=== PATIENT | male | born 1955 | race Caucasian/White ===

== ENCOUNTER 2018-12-21 16:02 | Emergency (ER) | payer OTHER ==
[2018-12-21 16:10] VITALS: BP 152/80; TEMP 97.6; BMI 30.8
[2018-12-21] MEDS ORDERED: LIDOCAINE HCL 1% SDV SUBCUT STA (16:26)
[2018-12-21] MEDS ORDERED: BOOSTRIX IM ONE (16:26)
--- NOTE | 2018-12-21 16:26 | ED.PDOC ---
General ED Provider: Dr. KRISTINA NAIR Chief Complaint: Hand Laceration Stated Complaint: "Cut my Rt Hand". 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 and and sustained laceration between thumb and 1st finger on a piece of metal farm equipment, bleeding controlled Time Seen by Physician: 16:20 Mode of Arrival: Walk-In Information Source: Patient Exam Limitations: No limitations Primary Care Provider: AYANA TURNER Nursing and Triage Documentation Reviewed and Agree: Yes Does patient meet sepsis criteria?: No If yes, has appropriate treatment been initiated?: Yes System Inflammatory Response Syndrome: Not Applicable Sepsis Protocol: For patient's 13 years and over: Temp is 96.8 and below OR 101 and greater Pulse >90 BPM Resp >20/minute Acutely Altered Mental Status Are patient's symptoms suggestive of a new infection, such as: -Pneumonia -Skin, Soft Tissue -Endocarditis -UTI -Bone, Joint Infection -Implantable Device -Acute Abdominal Infection -Wound Infection -Meningitis -Blood Stream Catheter Infection -Unknown Trauma/Injury Complaint Exam - Trauma Complaint/Exam Location of Pain or Injury: Reports: RUE (Hand palmar interspace between 1st and 2nd digit) Mechanism of Injury: Reports: Penetrating trauma Onset/Duration: 2 hrs Symptoms Are: Still present Timing of Treatment: Immediate Initial Severity: Moderate Current Severity: Mild Character: Reports: Aching, Burning, Sharp Aggravating: Reports: Movement Alleviating: Reports: None, Rest, Immobilization, Elevation, Ice Associated Signs and Symptoms: Reports: Bleeding. Denies: LOC, Confusion, Memory loss, Lethargy, Vomiting, Bruising, Swelling, Extremity disuse, Painful respiration, Hoarseness, Dysphagia, Hemoptysis, Significant blood loss Related History: Denies: Similar episode Penetrating Injury Risk Factors: Reports: Grinding (puncture) Related Surgical History: Reports: None Skin Findings: Present: Laceration (Rt Hand) Differential Diagnoses: Laceration Review of Systems - Review Of Systems Constitutional: Reports: No symptoms Eyes: Reports: No symptoms Ears, Nose, Mouth, Throat: Reports: No symptoms Respiratory: Reports: No symptoms Cardiac: Reports: No symptoms GI: Reports: No symptoms : Reports: No symptoms Musculoskeletal: Reports: No symptoms Skin: Reports: No symptoms Neurological: Reports: No symptoms Endocrine: Reports: No symptoms Hematologic/Lymphatic: Reports: No symptoms All Other Systems: Reviewed and Negative Past Medical History - Past Medical History Previously Healthy: Yes Endocrine: Reports: None Cardiovascular: Reports: None Respiratory: Reports: None Hematological: Reports: None Gastrointestinal: Reports: None Genitourinary: Reports: None Neuro/Psych: Reports: None Musculoskeletal: Reports: None Cancer: Reports: None - Surgical History General Surgical History: Reports: None - Family History Family History: Reports: None - Social History Smoking Status: Never smoker Hx Substance Use: No Alcohol Screening: Heavy - Immunizations Tetanus Shot up to Date: No Physical Exam - Physical Exam Appearance: Well-appearing, Well-nourished Pain Distress: Mild Eyes: WILIAN, EOMI, Conjunctiva clear ENT: Ears normal, Nose normal, Oropharynx normal Respiratory: Airway patent, Breath sounds clear, Breath sounds equal, Respirations nonlabored Cardiovascular: RRR, Pulses normal, No rub, No murmur GI/: Soft, Nontender, No masses, Bowel sounds normal, No Organomegaly Musculoskeletal: Normal strength, ROM intact, No edema, No calf tenderness Skin: Warm, Dry, Normal color Neurological: Sensation intact, Motor intact, Reflexes intact, Cranial nerves intact, Alert, Oriented Psychiatric: Affect appropriate, Mood appropriate Interpretation - Radiology Interpretation Radiology Interpretation By: ED Physician Exam Interpreted: Other (Rt Hand; No acute Osseous abnormalities. no obvious metalic foreign objects) Procedures - Laceration/Wound Repair Rt Hand Wound Length (cm): 2.5-3 CM Wound Width: 5 mm Wound Depth: 5 mm Wound Explored: Clean Wound Irrigated: Yes Wound Prep: Saline, Hibiclens, Betadine Anesthesia: Lidocaine (5 cc 1 % Lidocaine plain) Wound Repaired With: Sutures Suture Size and Type: 3-0 Ethilon Number of Sutures: 5 Layer Closure?: No Sterile Dressing Applied?: Yes Splint Applied?: No Sling Applied?: No Re-Evaluation - Re-Evaluation Time of Re-Evaluation: 18:40 Status: Improved Vital Signs Stable: Yes Appearance: NAD Lungs: Clear Skin: Warm and Dry Neuro: Alert and Oriented X3 Critical Care Note - Critical Care Note Total Time (mins): 30 Course - Course Orders, Labs, Meds: Orders Category Date Time Status Diphth,Pertuss(Acell),Tet Vac [Boostrix] MEDS 12/21/18 16:26 Discontinued 0.5 ml IM .ONCE ONE Lidocaine HCl/Pf [Lidocaine HCl 1% Sdv] MEDS 12/21/18 16:26 Discontinued 5 ml SUBCUT ONCE STA HAND, RIGHT 2 VIEWS Stat RADS 12/21/18 17:05 Completed Medications Discontinued Medications Generic Name Dose Route Start Last Admin Trade Name Zenia PRN Reason Stop Dose Admin Diphtheria/Pertussis/Tetanus Vacc 0.5 ml 12/21/18 16:26 12/21/18 16:33 Boostrix IM 12/21/18 16:27 0.5 ml .ONCE ONE Administration Lidocaine HCl 5 ml 12/21/18 16:26 12/21/18 16:32 Lidocaine Hcl 1% Sdv SUBCUT 12/21/18 16:27 5 ml ONCE STA Administration Vital Signs: Temp Pulse Resp BP Pulse Ox 12/21/18 16:02 97.6 F 77 18 152/80 H 96 Departure - Departure Time of Disposition: 17:25 Disposition: HOME SELF-CARE Discharge Problem: Laceration of right hand Instructions: Care For Your Stitches (ED), Laceration (ED) Condition: Good Pt referred to PMD for follow-up: Yes (See PCP 1wk or return here) IPMP verified?: No Additional Instructions: Wound care as directed Take antibiotics Take Ibuprofen or Tylenol for Pain Return to ER for follow up in 1 week Prescriptions: Cephalexin 500 mg PO BID 7 Days #14 capsule Allergies/Adverse Reactions: Allergies No Known Allergies Allergy (Verified 12/21/18 16:06) Home Medications: Ambulatory Orders Amlodipine Besylate [Norvasc] 5 mg PO DAILY 12/21/18 Benazepril HCl [Lotensin] 20 mg PO DAILY 12/21/18 Cephalexin 500 mg PO BID 7 Days #14 capsule 12/21/18 Topiramate [Topamax] 50 mg PO DAILY 12/21/18 Disposition Discussed With: Patient
--- NOTE | 2018-12-21 17:51 | DI ---
Exam: Two views of the right hand. Comparison: Right thumb x-ray performed 09/10/2010. Reason for exam: Laceration. FINDINGS: No acute fracture or malalignment. The cortices appear intact. There is moderate degener ative disease with joint space narrowing and osteophyte formation. No radiopaque retained foreign dave dy is seen. Impression: No acute fracture or dislocation in the right hand. Moderate degenerative disease.
== END 2018-12-21 17:41 | disposition home or self-care (01) ==
LOC: ED 16:02
DX: S61.411A Laceration without foreign body of right hand, initial encounter (principal); W45.8XXA Other foreign body or object entering through skin, initial encounter
CPT/HCPCS: 90471; 90715; 99283

== ENCOUNTER 2024-09-26 11:32 | Observation (INO) ==
[2024-09-26] MEDS ORDERED: SOLU-MEDROL 40 MG IVP STA (11:54)
[2024-09-26] MEDS: DUONEB NEB ONE ×2 (12:02→12:53)
--- NOTE | 2024-09-26 12:04 | ED.PDOC ---
General ED Provider: Dr. TALA THOMAS MD Chief Complaint: Shortness of Air Stated Complaint: Dyspnea Time Seen by Provider: 09/26/24 12:03 Information Source: Patient and Family Primary Care Provider: AYANA TURNER Nursing and Triage Documentation Reviewed and Agree: Yes Does Patient Take Opioids?: No Is Patient Opioid Naive?: Yes What is Opioid Naive?: *Opioid Naive implies the patient is not already taking opioids or not chronically receiving opioids on a daily basis. *PRN dosing is not "usually" associated with tolerance. *Patients are at higher risk of over-sedation and aspiration. Is Patient Opioid Tolerant?: No What is Opioid Tolerant?: *Opioid Tolerance implies less than the expected response to an opioid. *Acquired tolerance is defined by the patient taking 60mg of oral morphine daily (or equianalgesic dose of another opioid) for 1 week or more. *Often associated with chronic pain. *May take more than usual dose to achieve desired pain control. Respiratory Complaint Exam Shortness of Air Complaint/Exam Onset/Duration: 3 days Symptoms Are: Worse Timing: Constant Initial Severity: Moderate Current Severity: Severe Character: Reports Dyspnea at rest and Orthopnea Aggravating: Reports URI Alleviating: Reports Bronchodilators and Upright position Associated Signs and Symptoms: Reports Cough, Wheezing, Fever, Nasal congestion and Labored breathing; Denies Chills or Diaphoresis History of Healthcare-Acquired Pneumonia: No Home Oxygen Use: No Respiratory Distress: Moderate Stridor Present: No Tracheal Deviation: No Subcutaneous Emphysema: No Accessory Muscle Use: No Retractions: Not Present Diminished Breath Sounds: Yes Prolonged Expiratory Phase: Yes Unable to Speak Full Sentences: Yes Fatigue: No Leg Swelling: No Tami's Sign Present: No Grunting Respirations: No Differential Diagnoses: Asthma, Pulmonary Edema, COPD Exacerbation, Pneumonia, SARS, Bronchitis, RSV, Bronchospasm and URI Review of Systems Review Of Systems Constitutional: Reports Chills, Fever, Malaise and Weakness Eyes: Reports No symptoms Ears, Nose, Mouth, Throat: Reports No symptoms Cardiac: Reports No symptoms GI: Reports No symptoms : Reports No symptoms Musculoskeletal: Reports No symptoms Skin: Reports No symptoms Neurological: Reports No symptoms Endocrine: Reports No symptoms Hematologic/Lymphatic: Reports No symptoms [facility] Medical History History of high cholesterol Z86.39 - Personal history of other endocrine, nutritional and metabolic disease (ICD-10) Hypertension I10 - Essential (primary) hypertension (ICD-10) Chronic headaches R51 - Headache (ICD-10) 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 (ICD-10) Family History (Updated 09/26/24 @ 14:25 by CRISTOBAL PAZ RN) Mother Stroke FATHER Heart attack Social History (Updated 09/26/24 @ 14:25 by CRISTOBAL PAZ RN) Smoking and tobacco status: Former smoker How long ago did patient quit smokin years ago Quit status: quit date established Alcohol intake: current Substance use type: does not use Surgical History 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 (ICD-10) hip surgeries x2 Physical Exam Physical Exam Appearance: Reports Ill-appearing, No pain distress and Well-nourished Ill-appearing: Moderate Pain Distress: None Eyes: Reports WILIAN, EOMI and Conjunctiva clear ENT: Reports Nose normal and Oropharynx normal Neck: Supple Respiratory: Reports Breath sounds diminished, Crackles and Wheezes Cardiovascular: Reports RRR, Pulses normal and No murmur GI/: Reports Soft, Nontender and No Organomegaly Musculoskeletal: Reports Normal strength, ROM intact, No edema and No calf tenderness Skin: Reports Warm and Dry; Denies Cyanotic Neurological: Reports Alert and Oriented Interpretation Radiology Interpretation Radiology Interpretation By: ED Physician (By my independent interpretation) Radiology Results: Positive (Flattening of the diaphragm without infiltrate) Exam Interpreted: CXR (2 view) Physician Notification Case Discussed Physician Notified: Jaime Conley Time of Notification: 13:00 Comments: Observation for influenza A with exacerbation of COPD unresponsive to aggressive management Course Course 09/26/24 12:03 09/26/24 12:03 Orders, Labs, Meds: Lab Review 09/26/24 09/26/24 12:00 12:03 WBC 5.37 RBC 4.75 Hgb 14.1 Hct 44.3 MCV 93.3 MCH 29.7 MCHC 31.8 RDW Coeff of Morteza 12.6 Plt Count 197 Immature Gran % (Auto) 0.7 Neut % (Auto) 48.5 Lymph % (Auto) 33.5 Robeson % (Auto) 15.8 H Eos % (Auto) 1.1 Baso % (Auto) 0.4 Neut # (Auto) 2.6 Lymph # (Auto) 1.8 Robeson # (Auto) 0.9 Eos # (Auto) 0.1 Baso # (Auto) 0.0 Immature Gran # (Auto) 0.0 Sodium 140.3 Potassium 4.51 Chloride 104.5 Carbon Dioxide 25.0 Anion Gap 15.31 BUN 15.9 Creatinine 1.10 Estimated GFR (MDRD) 66.00 BUN/Creatinine Ratio 14.45 Glucose 125.7 H Calcium 9.31 NT-Pro-B Natriuret Pep 352 H Influ A Molecular Assay Positive by naat H Influ B Molecular Assay Negative by naat RSV Antigen Negative by naat SARS CoV-2 RNA Rapid EDMUNDO Negative Orders Category Date Time Status OBSERVATION [PLACE PATIENT OBSERVATION] .[facility] ADMISSION 09/26/24 13:14 Active (MONITORED BED) TELEMETRY MONITORING TELE CARE 09/26/24 13:14 Active BMP [BASIC METABOLIC PANEL] Stat LAB 09/26/24 12:03 Completed CBC W/ AUTO DIFF Stat LAB 09/26/24 12:03 Completed COVID [SARS COV-2 RNA RAPID EDMUNDO] Stat LAB 09/26/24 12:00 Completed FLU A & B MOLECULAR [FLU A/B MOLECULAR] Stat LAB 09/26/24 12:00 Completed NT-PROBNP(ED) Stat LAB 09/26/24 12:03 Completed RSV Stat LAB 09/26/24 12:00 Completed Ipratropium/Albuterol Neb [Duoneb] Meds 09/26/24 11:54 Discontinued 3 ml NEB ONCE ONE Ipratropium/Albuterol Neb [Duoneb] Meds 09/26/24 12:44 Discontinued 3 ml NEB ONCE ONE Methylprednisolone Sod Succ/Pf [Solu-Medrol 125 mg] Meds 09/26/24 12:30 Discontinued 125 mg IVP ONCE ONE CXR [CHEST, 2 VIEWS PA & LAT] Stat RADS 09/26/24 11:54 Completed Medications Discontinued Medications Generic Name Dose Route Start Last Admin Trade Name Freq PRN Reason Stop Dose Admin Albuterol/Ipratropium 3 ml 09/26/24 11:54 09/26/24 12:02 Ipratropium/Albuterol Vial.Neb NEB 09/26/24 11:55 3 ml ONCE ONE Administration Albuterol/Ipratropium 3 ml 09/26/24 12:44 09/26/24 12:53 Ipratropium/Albuterol Vial.Neb NEB 09/26/24 12:45 3 ml ONCE ONE Administration Methylprednisolone Sodium Succinate 125 mg 09/26/24 12:30 09/26/24 12:22 Methylprednisolone Sod Succ/Pf 125 Mg/2 Ml Vial IVP 09/26/24 12:31 125 mg ONCE ONE Administration Vital Signs: Temp Pulse Resp BP Pulse Ox 09/26/24 11:43 97.5 F L 89 20 137/91 H 96 EXAM: CHEST RADIOGRAPH; TWO VIEW HISTORY: SOB COMPARISON: Chest radiograph for 05/13/2023. FINDINGS: Trachea is midline. Cardiomediastinal silhouette is unchanged. Atherosclerosis in the aorta. Calcified granulomas. No pneumothorax or large pleural effusions. Osseous structures are intact. IMPRESSION: No acute findings. Electronically Signed By: Tera Sykes M.D. Signing Date: 2024-09-26 12:44 Discharge Plan Discharge Patient Disposition: PLACED OBSERVATION Discharge Problem: Influenza A Acute asthma exacerbation Qualifiers: Asthma severity: mild Asthma persistence: intermittent Qualified Code(s): J 45.21 - Mild intermittent asthma with (acute) exacerbation Did you review [place] [employer] for ALL controlled substances?: No ED Provider: TALA THOMAS Condition: Stable Physician Progress Note: Patient seen after triage Cough and congestion. Complaining of being dyspneic. 1225-flu a is positive. 1250-patient still has significant wheezing. A second nebulizer treatment was ordered. Explained the positivity of the test. He did not take his shot this year. 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 He does not have a nebulizer at home. Chest x-ray shows chronic abnormalities but no infiltrates 1315-patient is no better after the second nebulizer treatment. He is agreeable to observation status. Hospitalist notified. Patient placed in observation on monitor.
[2024-09-26 12:06] LABS: BASOPHILS % (AUTO) 0.4 % (0.0-3.0); EOSINOPHILS # (AUTO) 0.1 K/ul (0.0-0.7); EOSINOPHILS % (AUTO) 1.1 % (0.0-7.0); HEMATOCRIT 44.3 % (42.0-52.0); HEMOGLOBIN 14.1 g/dl (14.0-18.0); IMMATURE GRANULOCYTE % (AUTO) 0.7 % (0.0-5.0); LYMPHOCYTES # (AUTO) 1.8 K/uL (0.60-3.4); LYMPHOCYTES % (AUTO) 33.5 (10.0-50.0); MEAN CORPUSCULAR HEMOGLOBIN 29.7 pg (27.0-31.0); MEAN CORPUSCULAR HGB CONC 31.8 (31.8-35.4); MEAN CORPUSCULAR VOLUME 93.3 fl (80.0-94.0); MONOCYTES # (AUTO) 0.9 K/uL (0.4-2.0); MONOCYTES % (AUTO) 15.8 (0-10); NEUTROPHILS # (AUTO) 2.6 K/ul (2.0-6.9); NEUTROPHILS % (AUTO) 48.5 % (42.2-75.2); PLATELET COUNT 197 10^3/uL (140-440); RDW COEFFICIENT OF VARIATION 12.6 % (11.6-14.8); RED BLOOD COUNT 4.75 10^6/ul (4.70-6.10); WHITE BLOOD COUNT 5.37 K/ul (4.2-10.2)
[2024-09-26 12:22] LABS: MOLECULAR FLU A POSITIVE BY NAAT (NEGATIVE); MOLECULAR FLU B NEGATIVE BY NAAT (NEGATIVE); RSV MOLECULAR NEGATIVE BY NAAT (NEGATIVE); SARS COV-2 RNA RAPID NAAT NEGATIVE (NEGATIVE)
[2024-09-26] MEDS: SOLU-MEDROL 125 MG IVP ONE (12:22)
[2024-09-26 12:23] LABS: BLOOD UREA NITROGEN 15.9 mg/dL (9-20); CALCIUM 9.31 mg/dL (8.4-10.2); CHLORIDE 104.5 mmol/L (98-107); CREATININE 1.1 mg/dL (0.60-1.10); GLUCOSE 125.7 mg/dL (74-106); POTASSIUM 4.51 mmol/L (3.5-5.1); SODIUM 140.3 mmol/L (134.5-145)
--- NOTE | 2024-09-26 12:48 | DI ---
EXAM: CHEST RADIOGRAPH; TWO VIEW HISTORY: SOB COMPARISON: Chest radiograph for 05/13/2023. FINDINGS: Trachea is midline. Cardiomediastinal silhouette is unchanged. Atherosclerosis in the aorta. Calci fied granulomas. No pneumothorax or large pleural effusions. Osseous structures are intact. IMPRESSION: No acute findings.
[2024-09-26 14:38] VITALS: BMI 30.4
[2024-09-26] MEDS ORDERED: TYLENOL PO PRN (14:45)
[2024-09-26] MEDS ORDERED: ALBUTEROL 0.083% NEB NEB PRN (14:45)
--- NOTE | 2024-09-26 15:18 | PCM ---
Date of Service Date Seen by Provider: 09/26/24 Time Seen by Provider: 15:00 Admit Day/Time Admission Date: 09/26/24 Admission Time: 13:15 Reason for Admission Chief Complaint: ACUTE COPD (FLU +) Hospital Provider Hospital Provider: LEX DIXON, [facility] [place] Primary Care Physician Primary Care Physician: SAULO ISSA History of Present Illness History of Present Illness: 68 yo male with pmh of systolic HF, COPD, HTN, HLD, and GERD presented to the ER with complaints of shortness of breath. Patient states he has had shortness of breath on exertion over the past 2 months but worsened over the last week or so. Reports difficulty laying flat, productive cough with clear sputum, and dyspnea on exertion. Denies fever, chills, body aches, sore throat or other symptoms. Sees [facility] with his last visit on 09/21/24 and was prescribed a breztri inhaler. States this has not been helping him and didn't know what else to do once he began wheezing extensively. Chest x-ray clear. Labs unremarkable. However, flu A positive. Unsure of onset but patient reports cough started on Thursday of last week. He was given steroids and 2 duonebs in ER without relief at this time. Admitted to med/surg observation. Case Discussed With Case Discussed With: Patient's case was discussed with the ER Physicians, Dr. Tripathi. [facility] Medical History (Updated 09/26/24 @ 15:23 by LEX DIXON) Stage 2 moderate COPD by GOLD classification J44.9 - Chronic obstructive pulmonary disease, unspecified (ICD-10) Systolic heart failure I50.20 - Unspecified systolic (congestive) heart failure (ICD-10) History of high cholesterol Z86.39 - Personal history of other endocrine, nutritional and metabolic disease (ICD-10) Hypertension I10 - Essential (primary) hypertension (ICD-10) Chronic headaches R51 - Headache (ICD-10) 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 (ICD-10) Surgical History 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 (ICD-10) hip surgeries x2 Family History Mother Stroke FATHER Heart attack Social History Smoking and tobacco status: Former smoker How long ago did patient quit smokin years ago Quit status: quit date established Alcohol intake: current Substance use type: does not use Allergies Allergies Allergy/AdvReac Type Severity Reaction Status Date / Time No Known Allergies Allergy Verified 09/26/24 11:48 Current Medications Home Medications Acetaminophen (Acetaminophen 325 Mg Tablet) 650 mg PO Q4H PRN PRN Reason: Mild Pain Albuterol Sulfate (Albuterol Sulfate 0.083% Vial.Neb) 2.5 mg NEB RTQ4H PRN PRN Reason: Wheezing Albuterol/Ipratropium (Ipratropium/Albuterol Vial.Neb) 3 ml NEB RTQ4H BG Azithromycin (Azithromycin 250 Mg Tablet) 500 mg PO DAILY BG Stop: 09/29/24 14:49 Clopidogrel Bisulfate (Clopidogrel Bisulfate 75 Mg Tablet) 75 mg PO DAILY [facility] CEFTRIAXONE/D5W 1 GM PREMIX (Rocephin 1 Gm/50 Ml D5w) 1 gm in 50 mls @ 100 mls/hr IV DAILY BG Stop: 09/29/24 14:59 Lisinopril (Lisinopril 5 Mg Tablet) 5 mg PO DAILY [facility] Methylprednisolone Sodium Succinate (Methylprednisolone Sod Succ/Pf 40 Mg/Ml Vial) 40 mg IVP Q8HR BG Metoprolol Succinate (Metoprolol Succinate 50 Mg Tab.Er.24h) 50 mg PO DAILY [facility] Non-Formulary Medication (Ctibymdgsm-Qtdyksvn-Zsburvhaqo [Breztri Aerosphere]) 2 inh IH BID BG Pantoprazole Sodium (Pantoprazole Sodium 40 Mg Tablet.) 40 mg PO QDAC2 BG Rosuvastatin Calcium (Rosuvastatin Calcium 10 Mg Tablet) 40 mg PO DAILY BG Spironolactone (Spironolactone 25 Mg Tablet) 25 mg PO DAILY BG Topiramate (Topiramate 50 Mg Tablet) 50 mg PO DAILY [facility] topiramate 50 mg tablet 50 mg PO DAILY 12/21/18 [History Confirmed 09/26/24] clopidogrel 75 mg tablet (Plavix) 75 mg PO DAILY 06/21/20 [History Confirmed 09/26/24] pantoprazole 40 mg tablet,delayed release (Protonix) 40 mg PO DAILY 06/21/20 [History Confirmed 09/26/24] albuterol sulfate 90 mcg/actuation aerosol inhaler 2 puff inhalation Q4-6H PRN shortness of breath or wheezing #8.5 grams 09/26/24 [Rx] budesonide 160 mcg-glycopyr 9 mcg-formot 4.8 mcg/actuation HFA inhaler (Breztri Aerosphere) 2 inh inhalation BID 09/26/24 [History Confirmed 09/26/24] lisinopril 5 mg tablet 5 mg PO DAILY 09/26/24 [History Confirmed 09/26/24] metoprolol succinate 50 mg tablet,extended release 24 hr 50 mg PO DAILY 09/26/24 [History Confirmed 09/26/24] oseltamivir 75 mg capsule (Tamiflu) 75 mg PO BID 5 days #10 caps 09/26/24 [Rx] prednisone 20 mg tablet 20 mg PO BID #10 tabs 09/26/24 [Rx] rosuvastatin 40 mg tablet 40 mg PO DAILY 09/26/24 [History Confirmed 09/26/24] spironolactone 25 mg tablet 25 mg PO DAILY 09/26/24 [History Confirmed 09/26/24] Opioid Naive vs. Tolerant Does Patient Take Opioids?: No Is Patient Opioid Naive?: Yes What is Opioid Naive?: *Opioid Naive implies the patient is not already taking opioids or not chronically receiving opioids on a daily basis. *PRN dosing is not "usually" associated with tolerance. *Patients are at higher risk of over-sedation and aspiration. Is Patient Opioid Tolerant?: No What is Opioid Tolerant?: *Opioid Tolerance implies less than the expected response to an opioid. *Acquired tolerance is defined by the patient taking 60mg of oral morphine daily (or equianalgesic dose of another opioid) for 1 week or more. *Often associated with chronic pain. *May take more than usual dose to achieve desired pain control. Review of Systems Constitutional: Reports No symptoms Head: Reports Normocephalic Eyes: Reports No symptoms Ears: Reports No symptoms Nose: Reports No symptoms Mouth: Reports No symptoms Throat: Reports No symptoms Cardiovascular: Reports No symptoms Respiratory: Reports Cough, Shortness of air and Wheeze Gastrointestinal: Reports No symptoms Genitourinary: Reports No Symptoms Musculoskeletal: Reports No symptoms Endocrine: Reports No symptoms Hematology: Reports No symptoms Immunology: Reports No symptoms Neurological: Reports No symptoms Psychiatric: Reports No symptoms Physical examination Most Recent Vital Signs: Most Recent Vital Signs Temperature 98.1 F 09/26/24 14:00 Temperature Source Temporal Artery Scan 09/26/24 14:00 Temperature Source Temporal Artery Scan 09/26/24 11:43 Pulse Rate 91 09/26/24 14:00 Respiratory Rate 22 H 09/26/24 14:00 Blood Pressure 135/97 H 09/26/24 14:00 Blood Pressure Mean 109 09/26/24 14:00 Blood Pressure Left Arm 135/97 09/26/24 14:00 Blood Pressure Location Left Arm 09/26/24 14:00 Blood Pressure Position Sitting 09/26/24 14:00 O2 Sat by Pulse Oximetry 95 09/26/24 14:00 Oxygen Delivery Method Room Air 09/26/24 15:00 Height 5 ft 10 in 09/26/24 14:00 Weight 96.1 kg 09/26/24 14:00 Telemetry Type Remote Telemetry 09/26/24 15:03 Telemetry Monitoring Started 09/26/24 15:03 Telemetry Heart Rate 91 09/26/24 15:03 EKG [place] Interval 0.15 09/26/24 15:03 EKG QRS Interval 0.09 09/26/24 15:03 Telemetry Strip Reading SR 09/26/24 15:03 Appearance: Positive No Apparent Distress and Alert and Oriented x3 Skin: Positive Warm and Good Turgor HEENT: Positive Normocephalic and PERRLA Neck: Positive Supple Chest/Lungs: Positive Symmetrical With Equal Breath Sounds, Wheezes (inspiratory and expiratory in bilateral lower quadrants) and Other (diminished in bilateral upper quadrants) Heart: Positive RRR and Pulses Normal GI/: Positive Soft, Nontender, Bowel Sounds Normal and No Distention Musculoskeletal: Positive Not Examined Extremities: Positive Intact Peripheral Pulses, Stable Joints Without Laxity and Good ROM in All Joints Neurological: Positive Sensation Intact, Motor intact, Reflexes Intact, Alert, Oriented and Muscle Strength 5/5 in Upper and Lower Extremities Bilaterally Labs This Visit Labs This Visit: Labs This Visit 09/26/24 09/26/24 12:00 12:03 WBC 5.37 RBC 4.75 Hgb 14.1 Hct 44.3 MCV 93.3 MCH 29.7 MCHC 31.8 RDW Coeff of Morteza 12.6 Plt Count 197 Immature Gran % (Auto) 0.7 Neut % (Auto) 48.5 Lymph % (Auto) 33.5 [place] % (Auto) 15.8 H Eos % (Auto) 1.1 Baso % (Auto) 0.4 Neut # (Auto) 2.6 Lymph # (Auto) 1.8 [place] # (Auto) 0.9 Eos # (Auto) 0.1 Baso # (Auto) 0.0 Immature Gran # (Auto) 0.0 Sodium 140.3 Potassium 4.51 Chloride 104.5 Carbon Dioxide 25.0 Anion Gap 15.31 BUN 15.9 Creatinine 1.10 Estimated GFR (MDRD) 66.00 BUN/Creatinine Ratio 14.45 Glucose 125.7 H Calcium 9.31 NT-Pro-B Natriuret Pep 352 H Influ A Molecular Assay Positive by naat H Influ B Molecular Assay Negative by naat RSV Antigen Negative by naat SARS CoV-2 RNA Rapid EDMUNDO Negative Imaging Imaging: EXAM: CHEST RADIOGRAPH; TWO VIEW HISTORY: SOB COMPARISON: Chest radiograph for 05/13/2023. FINDINGS: Trachea is midline. Cardiomediastinal silhouette is unchanged. Atherosclerosis in the aorta. Calcified granulomas. No pneumothorax or large pleural effusions. Osseous structures are intact. IMPRESSION: No acute findings. Review Statement Review Statement: I have independently reviewed and interpreted the labs/EKGs/imaging that were ordered by the ER provider. I have reviewed all outside records that are available currently in our EMR including imaging/notes/labs from previous visits. Plan Plan: 1. COPD Exacerbation - rocephin IV, azith PO, steroids, nebs 2. Influenza A - out of 48 hour window for tamiflu, conservative measures 3. Chronic Systolic HF - does not appear in exacerbation, last EF 43%, daily weight, I&O, continue home medications 4. HTN - chronic, continue home medications 5. HLD - chronic, continue home medications 6. GERD - chronic, continue home medications DVT Prophylaxis: Ambulation Time Spent: Greater than 80 minutes spent with patient, 50% of the time spent with this patient was devoted to counseling and coordination of care. [facility] minutes spent discussing advance care planning. Disposition: Admit to: Med/Surg Observation Full Code Discussed Plan of Care with Dr. Tonia Sandhu. Medications Medication Orders: Medications Ordered Category Date Time Status Acetaminophen [Tylenol] Meds 09/26/24 14:45 Active 650 mg PO Q4H PRN Albuterol Sulfate 0.083% Neb [Albuterol 0.083% Neb] Meds 09/26/24 14:45 Active 2.5 mg NEB RTQ4H PRN Azithromycin [Zithromax] Meds 09/26/24 14:50 Active 500 mg PO DAILY Ceftriaxone/D5w 1 gm Premix [Rocephin 1 gm/50 ml D5w] Meds 09/26/24 15:00 Active 1 gm in 50 ml IV DAILY Ipratropium/Albuterol Neb [Duoneb] Meds 09/26/24 18:00 Active 3 ml NEB RTQ4H Methylprednisolone Sod Succ/Pf [Solu-Medrol 40 mg] Meds 09/26/24 21:00 Active 40 mg IVP Q8HR
[2024-09-26] MEDS: ZITHROMAX PO SCH (15:30)
[2024-09-26] MEDS: ROCEPHIN 1 GM/50 ML D5W 1 GM/50 ML BAG IV SCH (15:31)
[2024-09-26] MEDS: DUONEB NEB SCH (17:45)
[2024-09-26] MEDS: SOLU-MEDROL 40 MG IVP SCH (20:39)
[2024-09-26] MEDS: SYMBICORT 160-4.5 MCG INHALER IH SCH (20:40)
[2024-09-26] MEDS ORDERED: NON-FORMULARY MEDICATION (Budesonide-Glycopyr-Formoterol [Breztri Aerosphere] 160-9-4.8 mc IH SCH (21:00)
[2024-09-27] MEDS: PROTONIX PO SCH (05:25)
[2024-09-27 05:33] LABS: BASOPHILS % (AUTO) 0.2 % (0.0-3.0); HEMATOCRIT 39.2 % (42.0-52.0); HEMOGLOBIN 12.8 g/dl (14.0-18.0); IMMATURE GRANULOCYTE % (AUTO) 0.2 % (0.0-5.0); LYMPHOCYTES # (AUTO) 0.9 K/uL (0.60-3.4); LYMPHOCYTES % (AUTO) 14.3 (10.0-50.0); MEAN CORPUSCULAR HEMOGLOBIN 30.3 pg (27.0-31.0); MEAN CORPUSCULAR HGB CONC 32.7 (31.8-35.4); MEAN CORPUSCULAR VOLUME 92.9 fl (80.0-94.0); MONOCYTES # (AUTO) 0.3 K/uL (0.4-2.0); MONOCYTES % (AUTO) 4.4 (0-10); NEUTROPHILS # (AUTO) 5.2 K/ul (2.0-6.9); NEUTROPHILS % (AUTO) 80.9 % (42.2-75.2); PLATELET COUNT 193 10^3/uL (140-440); RDW COEFFICIENT OF VARIATION 12.5 % (11.6-14.8); RED BLOOD COUNT 4.22 10^6/ul (4.70-6.10); WHITE BLOOD COUNT 6.36 K/ul (4.2-10.2)
[2024-09-27 05:45] LABS: ALANINE AMINOTRANSFERASE 32.7 U/L (0-50); ALBUMIN 4.4 g/dL (3.5-5.0); ASPARTATE AMINO TRANSFERASE 37.8 U/L (17-59); BILIRUBIN,TOTAL 0.28 mg/dL (0.2-1.3); BLOOD UREA NITROGEN 16.7 mg/dL (9-20); CALCIUM 8.99 mg/dL (8.4-10.2); CARBON DIOXIDE 20.1 mmol/L (22-30.0); CHLORIDE 103.6 mmol/L (98-107); CREATININE 0.81 mg/dL (0.60-1.10); GLUCOSE 164.5 mg/dL (74-106); POTASSIUM 3.7 mmol/L (3.5-5.1); SODIUM 137.8 mmol/L (134.5-145); TOTAL PROTEIN 7.78 g/dL (6.3-8.2)
[2024-09-27] MEDS: CRESTOR PO SCH (08:29)
[2024-09-27] MEDS: ZESTRIL PO SCH (08:31)
[2024-09-27] MEDS: PLAVIX PO SCH (08:31)
[2024-09-27] MEDS: TOPAMAX PO SCH (08:31)
[2024-09-27] MEDS: ALDACTONE PO SCH (08:31)
[2024-09-27] MEDS: TOPROL XL PO SCH (08:31)
[2024-09-27] MEDS: SPIRIVA IH SCH (08:33)
--- NOTE | 2024-09-27 09:35 | PCM.PROG ---
Date/Time Seen Date Seen by Provider: 09/27/24 Time Seen by Provider: 08:45 Provider Provider: LEX DIXON, [facility] Chief Complaint Chief Complaint: ACUTE COPD (FLU +) Subjective Subjective: Feeling better today. Wheezing improved and still present at this time. Objective Appearance: Positive No Apparent Distress and Alert and Oriented x3 Chest/Lungs: Positive Symmetrical With Equal Breath Sounds, Wheezes (expiratory, mild in lung bases) and Good Air Movement all 4 Lung Garcia Heart: Positive RRR and Pulses Normal GI/: Positive Soft, Nontender, Bowel Sounds Normal and No Distention Musculoskeletal: Positive Not Examined Neurological: Positive Sensation Intact, Motor intact, Alert and Oriented Vital Signs Vital Signs: Vital Signs: Last 24 Hours 09/26/24 11:43 09/26/24 14:00 09/26/24 14:00 Temperature 97.5 F L 98.1 F 98.1 F Temperature Source Temporal Artery Scan Temporal Artery Scan Temporal Artery Scan Pulse Rate 89 91 91 Respiratory Rate 20 22 H 22 H Blood Pressure 137/91 H 135/97 H Blood Pressure Mean 109 Blood Pressure Left Arm 135/97 Blood Pressure Location Left Arm Blood Pressure Position Sitting Sitting O2 Sat by Pulse Oximetry 96 95 95 Oxygen Delivery Method Room Air Room Air Height 5 ft 10 in 5 ft 10 in Weight 98.9 kg 96.1 kg Telemetry Type Telemetry Monitoring Telemetry Heart Rate Telemetry SPO2 EKG [place] Interval EKG QRS Interval Telemetry Strip Reading Pulse Oximetry Type Pulse Oximetry Monitoring 09/26/24 14:00 09/26/24 14:00 09/26/24 15:00 Temperature Temperature Source Pulse Rate Respiratory Rate Blood Pressure Blood Pressure Mean Blood Pressure Left Arm Blood Pressure Location Blood Pressure Position O2 Sat by Pulse Oximetry Oxygen Delivery Method Room Air Room Air Room Air Height Weight Telemetry Type Telemetry Monitoring Telemetry Heart Rate Telemetry SPO2 EKG NV Interval EKG QRS Interval Telemetry Strip Reading Pulse Oximetry Type Pulse Oximetry Monitoring 09/26/24 15:03 09/26/24 15:42 09/26/24 17:00 Temperature Temperature Source Pulse Rate Respiratory Rate Blood Pressure Blood Pressure Mean Blood Pressure Left Arm Blood Pressure Location Blood Pressure Position O2 Sat by Pulse Oximetry Oxygen Delivery Method Room Air Room Air Height Weight Telemetry Type Remote Telemetry Telemetry Monitoring Started Telemetry Heart Rate 91 Telemetry SPO2 EKG NV Interval 0.15 EKG QRS Interval 0.09 Telemetry Strip Reading SR Pulse Oximetry Type Pulse Oximetry Monitoring 09/26/24 17:49 09/26/24 17:50 09/26/24 19:00 Temperature 97.7 F Temperature Source Temporal Artery Scan Pulse Rate 94 Respiratory Rate 14 Blood Pressure 124/79 Blood Pressure Mean 94 Blood Pressure Left Arm Blood Pressure Location Left Arm Blood Pressure Position O2 Sat by Pulse Oximetry 95 Oxygen Delivery Method Room Air Room Air Height Weight Telemetry Type Remote Telemetry Telemetry Monitoring Continues Telemetry Heart Rate 108 H Telemetry SPO2 EKG NV Interval 0.18 EKG QRS Interval 0.12 H Telemetry Strip Reading ST with BBB Pulse Oximetry Type Pulse Oximetry Monitoring 09/26/24 19:00 09/26/24 19:00 09/26/24 20:00 Temperature Temperature Source Pulse Rate Respiratory Rate Blood Pressure Blood Pressure Mean Blood Pressure Left Arm Blood Pressure Location Blood Pressure Position O2 Sat by Pulse Oximetry 94 L Oxygen Delivery Method Room Air Room Air Room Air Height Weight Telemetry Type Telemetry Monitoring Telemetry Heart Rate Telemetry SPO2 EKG NV Interval EKG QRS Interval Telemetry Strip Reading Pulse Oximetry Type Remote Telemetry Pulse Oximetry Monitoring Continues 09/26/24 20:00 09/26/24 20:33 09/26/24 21:00 Temperature 97.7 F Temperature Source Temporal Artery Scan Pulse Rate 93 Respiratory Rate 17 Blood Pressure 142/86 H Blood Pressure Mean 104 Blood Pressure Left Arm Blood Pressure Location Left Arm Blood Pressure Position Supine O2 Sat by Pulse Oximetry 94 L Oxygen Delivery Method Room Air Room Air Room Air Height Weight Telemetry Type Telemetry Monitoring Telemetry Heart Rate Telemetry SPO2 EKG NV Interval EKG QRS Interval Telemetry Strip Reading Pulse Oximetry Type Pulse Oximetry Monitoring 09/26/24 22:00 09/26/24 23:00 09/27/24 00:00 Temperature Temperature Source Pulse Rate Respiratory Rate Blood Pressure Blood Pressure Mean Blood Pressure Left Arm Blood Pressure Location Blood Pressure Position O2 Sat by Pulse Oximetry Oxygen Delivery Method Room Air Room Air Room Air Height Weight Telemetry Type Telemetry Monitoring Telemetry Heart Rate Telemetry SPO2 EKG NV Interval EKG QRS Interval Telemetry Strip Reading Pulse Oximetry Type Pulse Oximetry Monitoring 09/27/24 01:00 09/27/24 01:00 09/27/24 01:00 Temperature Temperature Source Pulse Rate Respiratory Rate Blood Pressure Blood Pressure Mean Blood Pressure Left Arm Blood Pressure Location Blood Pressure Position O2 Sat by Pulse Oximetry 92 L Oxygen Delivery Method Room Air Room Air Height Weight Telemetry Type Remote Telemetry Telemetry Monitoring Continues Telemetry Heart Rate 97 Telemetry SPO2 EKG NV Interval 0.15 EKG QRS Interval 0.14 H Telemetry Strip Reading SR with BBB Pulse Oximetry Type Remote Telemetry Pulse Oximetry Monitoring Continues 09/27/24 02:00 09/27/24 02:00 09/27/24 03:00 Temperature 97.3 F L Temperature Source Temporal Artery Scan Pulse Rate 98 Respiratory Rate 18 Blood Pressure 131/86 Blood Pressure Mean 101 Blood Pressure Left Arm Blood Pressure Location Left Arm Blood Pressure Position Supine O2 Sat by Pulse Oximetry 95 Oxygen Delivery Method Room Air Room Air Room Air Height Weight Telemetry Type Telemetry Monitoring Telemetry Heart Rate Telemetry SPO2 EKG NV Interval EKG QRS Interval Telemetry Strip [place] Pulse Oximetry Type Pulse Oximetry Monitoring 09/27/24 04:00 09/27/24 05:00 09/27/24 05:35 Temperature 97.5 F L Temperature Source Temporal Artery Scan Pulse Rate 98 Respiratory Rate 21 H Blood Pressure 139/89 Blood Pressure Mean 105 Blood Pressure Left Arm Blood Pressure Location Left Arm Blood Pressure Position Supine O2 Sat by Pulse Oximetry 97 Oxygen Delivery Method Room Air Room Air Room Air Height Weight Telemetry Type Telemetry Monitoring Telemetry Heart Rate Telemetry SPO2 EKG NV Interval EKG QRS Interval Telemetry Strip Reading Pulse Oximetry Type Pulse Oximetry Monitoring 09/27/24 05:35 09/27/24 06:00 09/27/24 07:00 Temperature Temperature Source Pulse Rate Respiratory Rate Blood Pressure Blood Pressure Mean Blood Pressure Left Arm Blood Pressure Location Blood Pressure Position O2 Sat by Pulse Oximetry 96 Oxygen Delivery Method Room Air Room Air Height Weight 95.2 kg Telemetry Type Telemetry Monitoring Telemetry Heart Rate Telemetry SPO2 EKG [place] Interval EKG QRS Interval Telemetry Strip Reading Pulse Oximetry Type Remote Telemetry Pulse Oximetry Monitoring Continues 09/27/24 07:00 09/27/24 07:00 09/27/24 07:00 Temperature Temperature Source Pulse Rate Respiratory Rate Blood Pressure Blood Pressure Mean Blood Pressure Left Arm Blood Pressure Location Blood Pressure Position O2 Sat by Pulse Oximetry 95 Oxygen Delivery Method Room Air Room Air Height Weight Telemetry Type Remote Telemetry Telemetry Monitoring Continues Telemetry Heart Rate 115 H Telemetry SPO2 96 EKG [place] Interval 0.15 EKG QRS Interval 0.09 Telemetry Strip Reading Sinus Tach 115 Pulse Oximetry Type Pulse Oximetry Monitoring 09/27/24 08:00 09/27/24 08:00 09/27/24 09:00 Temperature Temperature Source Pulse Rate Respiratory Rate Blood Pressure Blood Pressure Mean Blood Pressure Left Arm Blood Pressure Location Blood Pressure Position O2 Sat by Pulse Oximetry Oxygen Delivery Method Room Air Room Air Room Air Height Weight Telemetry Type Telemetry Monitoring Telemetry Heart Rate Telemetry SPO2 EKG [place] Interval EKG QRS Interval Telemetry Strip Reading Pulse Oximetry Type Pulse Oximetry Monitoring Lab Results Lab Results: Lab Results: Last 24 Hours 09/27/24 09/26/24 09/26/24 05:04 12:03 12:00 WBC 6.36 5.37 RBC 4.22 L 4.75 Hgb 12.8 L 14.1 Hct 39.2 L 44.3 MCV 92.9 93.3 MCH 30.3 29.7 MCHC 32.7 31.8 RDW Coeff of Morteza 12.5 12.6 Plt Count 193 197 Immature Gran % (Auto) 0.2 0.7 Neut % (Auto) 80.9 H 48.5 Lymph % (Auto) 14.3 33.5 [place] % (Auto) 4.4 15.8 H Eos % (Auto) 0.0 1.1 Baso % (Auto) 0.2 0.4 Neut # (Auto) 5.2 2.6 Lymph # (Auto) 0.9 1.8 [place] # (Auto) 0.3 L 0.9 Eos # (Auto) 0.0 0.1 Baso # (Auto) 0.0 0.0 Immature Gran # (Auto) 0.0 0.0 Sodium 137.8 140.3 Potassium 3.70 4.51 Chloride 103.6 104.5 Carbon Dioxide 20.1 L 25.0 Anion Gap 17.80 15.31 BUN 16.7 15.9 Creatinine 0.81 1.10 Estimated GFR (MDRD) 94.00 66.00 BUN/Creatinine Ratio 20.61 14.45 Glucose 164.5 H 125.7 H Calcium 8.99 9.31 Total Bilirubin 0.28 AST 37.8 ALT 32.7 Alkaline Phosphatase 63.0 NT-Pro-B Natriuret Pep 352 H Total Protein 7.78 Albumin 4.40 Globulin 3.38 Albumin/Globulin Ratio 1.30 Influ A Molecular Assay Positive by naat H Influ B Molecular Assay Negative by naat RSV Antigen Negative by naat SARS CoV-2 RNA Rapid EDMUNDO Negative Additional Comments Additional Comments: I have independently reviewed and interpreted the labs/EKGs/imaging ordered during this hospital stay. I have reviewed outside records that are available in our EMR that pertain to medical stay including imaging/notes/labs from previous visits. Active Medications Active Medications: Medications Generic Name Dose Route Start Last Admin Trade Name Freq PRN Reason Stop Dose Admin Acetaminophen 650 mg 09/26/24 14:45 Acetaminophen 325 Mg Tablet PO Q4H PRN Mild Pain Albuterol Sulfate 2.5 mg 09/26/24 14:45 Albuterol Sulfate 0.083% Vial.Neb NEB RTQ4H PRN Wheezing Albuterol/Ipratropium 3 ml 09/26/24 18:00 09/27/24 05:21 Ipratropium/Albuterol Vial.Neb NEB 3 ml RTQ4H BG Administration Azithromycin 500 mg 09/26/24 14:50 09/27/24 08:30 Azithromycin 250 Mg Tablet PO 09/28/24 23:59 500 mg DAILY BG Administration Budesonide/Formoterol Fumarate 2 puff 09/26/24 21:00 09/27/24 08:32 Budesonide/Formoterol Fumarate 160/4.5 Mcg Inhaler IH 2 puff BID BG Administration Clopidogrel Bisulfate 75 mg 09/27/24 09:00 09/27/24 08:31 Clopidogrel Bisulfate 75 Mg Tablet PO 75 mg DAILY BG Administration CEFTRIAXONE/D5W 1 GM PREMIX 1 gm in 50 mls @ 100 mls/hr 09/26/24 15:00 09/27/24 08:50 Rocephin 1 Gm/50 Ml D5w IV 09/29/24 14:59 100 mls/hr DAILY BG Administration Lisinopril 5 mg 09/27/24 09:00 09/27/24 08:31 Lisinopril 5 Mg Tablet PO 5 mg DAILY BG Administration Methylprednisolone Sodium Succinate 40 mg 09/26/24 21:00 09/27/24 05:25 Methylprednisolone Sod Succ/Pf 40 Mg/Ml Vial IVP 40 mg Q8HR BG Administration Metoprolol Succinate 50 mg 09/27/24 09:00 09/27/24 08:31 Metoprolol Succinate 50 Mg Tab.Er.24h PO 50 mg DAILY BG Administration Pantoprazole Sodium 40 mg 09/27/24 06:00 09/27/24 05:25 Pantoprazole Sodium 40 Mg Tablet. PO 40 mg QDAC2 BG Administration Rosuvastatin Calcium 40 mg 09/27/24 09:00 09/27/24 08:29 Rosuvastatin Calcium 10 Mg Tablet PO 40 mg DAILY BG Administration Spironolactone 25 mg 09/27/24 09:00 09/27/24 08:31 Spironolactone 25 Mg Tablet PO 25 mg DAILY BG Administration Tiotropium [place] 1 cap 09/27/24 09:00 09/27/24 08:33 Tiotropium [place] 18 Mcg Cap.W.Dev IH 1 cap DAILY BG Administration Topiramate 50 mg 09/27/24 09:00 09/27/24 08:31 Topiramate 50 Mg Tablet PO 50 mg DAILY BG Administration Plan Plan: 1. COPD Exacerbation - rocephin IV, azith PO, steroids, nebs 2. Influenza A - out of 48 hour window for tamiflu, conservative measures 3. Chronic Systolic HF - does not appear in exacerbation, last EF 43%, daily weight, I&O, continue home medications 4. HTN - chronic, continue home medications 5. HLD - chronic, continue home medications 6. GERD - chronic, continue home medications DVT Prophylaxis: Ambulation Dispo: Anticipate discharge tomorrow Review Statement Review Statement: I have personally discussed and reviewed the patient's visit/currently labs/imaging/decision making with Dr. Sandhu, my supervising attending. Greater that 50 minutes spent with patient, 50% of the time spent with this patient was devoted to counseling and coordination of care.
[2024-09-28 05:18] LABS: BASOPHILS % (AUTO) 0.1 % (0.0-3.0); EOSINOPHILS % (AUTO) 0.1 % (0.0-7.0); HEMATOCRIT 40.1 % (42.0-52.0); IMMATURE GRANULOCYTE # (AUTO) 0.1 (0.0-1.0); IMMATURE GRANULOCYTE % (AUTO) 0.6 % (0.0-5.0); LYMPHOCYTES # (AUTO) 1.2 K/uL (0.60-3.4); LYMPHOCYTES % (AUTO) 7.9 (10.0-50.0); MEAN CORPUSCULAR HEMOGLOBIN 30.3 pg (27.0-31.0); MEAN CORPUSCULAR HGB CONC 32.4 (31.8-35.4); MEAN CORPUSCULAR VOLUME 93.5 fl (80.0-94.0); MONOCYTES # (AUTO) 0.6 K/uL (0.4-2.0); MONOCYTES % (AUTO) 3.8 (0-10); NEUTROPHILS # (AUTO) 13.7 K/ul (2.0-6.9); NEUTROPHILS % (AUTO) 87.5 % (42.2-75.2); PLATELET COUNT 210 10^3/uL (140-440); RDW COEFFICIENT OF VARIATION 12.9 % (11.6-14.8); RED BLOOD COUNT 4.29 10^6/ul (4.70-6.10)
[2024-09-28 05:21] LABS: WHITE BLOOD COUNT 15.58 K/ul (4.2-10.2)
[2024-09-28 05:25] LABS: ALBUMIN 4.29 g/dL (3.5-5.0); BILIRUBIN,TOTAL 0.26 mg/dL (0.2-1.3); BLOOD UREA NITROGEN 21.4 mg/dL (9-20); CALCIUM 9.19 mg/dL (8.4-10.2); CARBON DIOXIDE 22.2 mmol/L (22-30.0); CHLORIDE 107.8 mmol/L (98-107); CREATININE 0.84 mg/dL (0.60-1.10); POTASSIUM 4.78 mmol/L (3.5-5.1); SODIUM 139.8 mmol/L (134.5-145); TOTAL PROTEIN 7.68 g/dL (6.3-8.2)
[2024-09-28 08:03] VITALS: RESP 20
--- NOTE | 2024-09-28 09:08 | DCSUM ---
Admission Date Admission Date: 09/26/24 Discharge Date Discharge Date: 09/28/24 Admission Diagnosis Admission Diagnosis: 1. COPD Exacerbation 2. Influenza A Discharge Diagnosis Discharge Diagnosis: 1. COPD Exacerbation - Improving 2. Influenza A - Improving, out of 48 hour window for tamiflu 3. Chronic Systolic HF - chronic, stable 4. HTN - chronic, stable 5. HLD - chronic, stable 6. GERD - chronic, stable Hospital Provider Hospital Provider: L[place], [facility] Primary Care Physician Primary Care Physician: SAULO ISSA Summary of History and Physical Summary of History and Physical: 68 yo male with pmh of systolic HF, COPD, HTN, HLD, and GERD presented to the ER with complaints of shortness of breath. Patient states he has had shortness of breath on exertion over the past 2 months but worsened over the last week or so. Reports difficulty laying flat, productive cough with clear sputum, and dyspnea on exertion. Denies fever, chills, body aches, sore throat or other symptoms. Sees [facility] with his last visit on 09/21/24 and was prescribed a breztri inhaler. States this has not been helping him and didn't know what else to do once he began wheezing extensively. Chest x-ray clear. Labs unremarkable. However, flu A positive. Unsure of onset but patient reports cough started on Thursday of last week. He was given steroids and 2 duonebs in ER without relief at this time. Admitted to med/surg observation. Hospital Course Subjective: During stay, patient was treated for COPD exacerbation with rocephin, 3 days of azith, steroids, and nebs. Wheezing improved mildly after the first 24 hours and then today wheezing mostly resolved and is feeling much better. Did not require oxygen during stay and lowest his sat reached was 91% on RA. Patient was flu A positive and unsure of onset of symptoms. Did not start tamiflu due to this. Discussed new inhaler, nebs, course of antibiotics and steroids to complete. Received spiriva and symbicort as equivalent to Breztri during stay. Sent these inhalers home with patient and discussed to not use both Breztri and the other two together due to being the same medications. Plans to discuss with pharmacist if this is a cheaper alternative to the Breztri. Follow-up with Pulmonology on 10/05/24 Appearance: Pleasant, No Apparent Distress and Alert HEENT: MMM, Supple and No JVD CVS: No Murmur, No Rubs and No Gallop Abdomen: Soft, Non-Tender and No Distention Respiratory: No Dyspnea Extremities: No Edema Vital Signs: Most Recent Vital Signs Temperature 96.9 F L 09/28/24 05:09 Temperature Source Temporal Artery Scan 09/28/24 05:09 Temperature Source Temporal Artery Scan 09/26/24 11:43 Pulse Rate 100 09/28/24 07:48 Respiratory Rate 20 09/28/24 07:48 Blood Pressure 127/93 H 09/28/24 05:09 Blood Pressure Mean 104 09/28/24 05:09 Blood Pressure Left Arm 135/97 09/26/24 14:00 Blood Pressure Location Right Arm 09/28/24 05:09 Blood Pressure Position Supine 09/28/24 05:09 O2 Sat by Pulse Oximetry 93 L 09/28/24 07:00 Oxygen Delivery Method Room Air 09/28/24 08:00 Oxygen Flow Rate 96 09/27/24 13:00 Height 5 ft 10 in 09/26/24 14:00 Weight 95.6 kg 09/28/24 05:13 Telemetry Type Remote Telemetry 09/28/24 07:00 Telemetry Monitoring Continues 09/28/24 07:00 Telemetry Heart Rate 93 09/28/24 07:00 Telemetry SPO2 92 L 09/28/24 07:00 EKG NE Interval 0.18 09/28/24 07:00 EKG QRS Interval 0.13 H 09/28/24 07:00 Telemetry Strip Reading SR w/BBB 09/28/24 07:00 Pulse Oximetry Type Remote Telemetry 09/28/24 07:00 Pulse Oximetry Monitoring Continues 09/28/24 07:00 Imaging: EXAM: CHEST RADIOGRAPH; TWO VIEW HISTORY: SOB COMPARISON: Chest radiograph for 05/13/2023. FINDINGS: Trachea is midline. Cardiomediastinal silhouette is unchanged. Atherosclerosis in the aorta. Calcified granulomas. No pneumothorax or large pleural effusions. Osseous structures are intact. IMPRESSION: No acute findings. Lab Results Last 24 Hours: 09/28/24 05:06 WBC 15.58 H D RBC 4.29 L Hgb 13.0 L Hct 40.1 L MCV 93.5 MCH 30.3 MCHC 32.4 RDW Coeff of Morteza 12.9 Plt Count 210 Immature Gran % (Auto) 0.6 Neut % (Auto) 87.5 H Lymph % (Auto) 7.9 L [place] % (Auto) 3.8 Eos % (Auto) 0.1 Baso % (Auto) 0.1 Neut # (Auto) 13.7 H Lymph # (Auto) 1.2 [place] # (Auto) 0.6 Eos # (Auto) 0.0 Baso # (Auto) 0.0 Immature Gran # (Auto) 0.1 Sodium 139.8 Potassium 4.78 Chloride 107.8 H Carbon Dioxide 22.2 Anion Gap 14.58 BUN 21.4 H Creatinine 0.84 Estimated GFR (MDRD) 90.00 BUN/Creatinine Ratio 25.47 Glucose 145.0 H Calcium 9.19 Total Bilirubin 0.26 AST 40.0 ALT 28.0 Alkaline Phosphatase 61.0 Total Protein 7.68 Albumin 4.29 Globulin 3.39 Albumin/Globulin Ratio 1.26 Discharge Instructions Discharge Planning: Discharge Planning > 40 minutes If patient is discharged with left ventricular systolic dysfunction: no Discharged with a beta jaime? [] If no, why not? [] Discharged with an wilma/arb? [] If no, why not? [] Diagnosis: COPD Exacerbation, Flu A Diet: Regular Activity: as tolerated Medications: * Augmentin - Antibiotic, start taking tomorrow twice a day for the next 4 days * Albuterol Sulfate - "Rescue" inhaler for shortness of breath and wheezing, you may use 2 puffs every 4-6 hours as needed * Ipratropium/Albuterol (Duoneb) - nebulizer treatment, use this over the next 2-3 the days every 6 hours, then may use it as needed for shortness of breath and wheezing that the inhaler does not resolve * Prednisone - Twice a day for 5 days * Take your Breztri inhaler as prescribed twice a day We discussed using Symbicort and Spiriva in place of this. The Symbicort is twice a day and Spiriva is once a day in the morning. Do NOT take these with the Breztri. They are the same medications. Do not excelsior picker prescription for Tamiflu. Discharge Medications: RX At Discharge albuterol sulfate 90 mcg/actuation aerosol inhaler 2 puff inhalation Q4-6H PRN shortness of breath or wheezing #8.5 grams 09/26/24 [Rx] prednisone 20 mg tablet 20 mg PO BID #10 tabs 09/26/24 [Rx] amoxicillin 875 mg-potassium clavulanate 125 mg tablet 1 tab PO BID 4 days #8 tabs 09/28/24 [Rx] budesonide-formoterol HFA 160 mcg-4.5 mcg/actuation aerosol inhaler (Symbicort) 2 puff inhalation BID #1 g 09/28/24 [Rx] ipratropium 0.5 mg-albuterol 3 mg (2.5 mg base)/3 mL nebulization soln 3 ml NEB Q6H #90 mL 09/28/24 [Rx] tiotropium bromide 18 mcg capsule with inhalation device (Spiriva with HandiHaler) 1 cap inhalation DAILY #1 inh 09/28/24 [Rx] Discharge Plan Discharge Discharge Orders: Discharge Patient (ONCE); Ordered 09/28/24 Ordered By: NIK CASH Activity Restrictions/Additional Instructions: Diagnosis: COPD Exacerbation, Flu A Diet: Regular Activity: as tolerated Medications: * Augmentin - Antibiotic, start taking tomorrow twice a day for the next 4 days * Albuterol Sulfate - "Rescue" inhaler for shortness of breath and wheezing, you may use 2 puffs every 4-6 hours as needed * Ipratropium/Albuterol (Duoneb) - nebulizer treatment, use this over the next 2-3 the days every 6 hours, then may use it as needed for shortness of breath and wheezing that the inhaler does not resolve * Prednisone - Twice a day for 5 days * Take your Breztri inhaler as prescribed twice a day We discussed using Symbicort and Spiriva in place of this. The Symbicort is twice a day and Spiriva is once a day in the morning. Do NOT take these with the Breztri. They are the same medications. Do not excelsior picker prescription for Tamiflu. Instructions: How to Use a Metered-Dose Inhaler (GEN), Influenza (ED), COPD (Chronic Obstructive Pulmonary Disease) (GEN), How to Use a Nebulizer (GEN) Care Plan Goals: Problem: Impaired Respiratory Status Goal: Exhibit optimal respiratory function Instructions: Activities as tolerated Apply oxygen as ordered Elevate head of bed Notify MD of increased congestion Patient Disposition: HOME WITH FAMILY CARE Prescriptions: New albuterol sulfate 90 mcg/actuation HFA aerosol inhaler 2 puff inhalation Q4-6H PRN (Reason: shortness of breath or wheezing) Qty: 8.5 1RF prednisone 20 mg tablet 20 mg PO BID Qty: 10 0RF ipratropium-albuterol 0.5 mg-3 mg(2.5 mg base)/3 mL Solution For Nebulization 3 ml NEB Q6H Qty: 90 0RF Rx Instructions: Use over the next 2-3 days then as needed budesonide-formoterol [Symbicort] 160-4.5 mcg/actuation Hfa Aerosol Inhaler 2 puff inhalation BID Qty: 1 0RF tiotropium bromide [Spiriva with HandiHaler] 18 mcg Capsule, W/Inhalation Device 1 cap inhalation DAILY Qty: 1 0RF amoxicillin-pot clavulanate 875-125 mg tablet 1 tab PO BID 4 Days Qty: 8 0RF Rx Instructions: Start tomorrow Continued topiramate 50 MG tablet 50 mg PO DAILY lisinopril 5 mg tablet 5 mg PO DAILY metoprolol succinate 50 mg tablet extended release 24 hr 50 mg PO DAILY rosuvastatin 40 mg tablet 40 mg PO DAILY spironolactone 25 mg tablet 25 mg PO DAILY Breztri Aerosphere 160-9-4.8 mcg/actuation HFA aerosol inhaler 2 inh inhalation BID clopidogrel [Plavix] 75 mg Tablet 75 mg PO DAILY pantoprazole [Protonix] 40 mg Tablet,Delayed Release (Dr/Ec) 40 mg PO DAILY Did you review [place] [employer] for ALL controlled substances?: No Discussed opioids are addictive and Narcan is available by prescription or from pharmacy.: No Condition: Stable Referrals: SAULO ISSA [Primary Care Provider] - 09/30/24 10:30 am BOONE SAUER [REFERRING] - 10/05/24 2:45 pm
[2024-09-28 11:10] VITALS: BP 127/93; PULSE 83; TEMP 96.9
== END 2024-09-28 10:42 | disposition home or self-care (01) ==
LOC: MEDSURG B 11:32 → ED 11:32 → MEDSURG B 13:52
PROVIDERS: ADMIT Hospitalist; ATTEND Nurse Practitioner Family